=== PATIENT | female | born 1980 | race Two or more races ===

== ENCOUNTER 2021-06-30 22:16 | Emergency (ER) | payer MEDICAID, OTHER ==
[~2021-06-30] VITALS: Ht 152.4 cm; Wt 81.6 kg
[2021-06-30 23:30] VITALS: BP 126/81
== END 2021-07-01 00:40 | disposition home or self-care (01) ==
LOC: ER 22:16
DX: S01.01XA Laceration without foreign body of scalp, initial encounter (principal); R51.9 Headache, unspecified; W22.8XXA Striking against or struck by other objects, initial encounter; Y93.89 Activity, other specified; Y92.89 Other specified places as the place of occurrence of the external cause; Y99.8 Other external cause status
CPT/HCPCS: 12002; 70450

== ENCOUNTER 2022-02-07 01:38 | Emergency (ER) | payer MEDICAID ==
[~2022-02-07] VITALS: Ht 154.9 cm; Wt 81.6 kg
[2022-02-07 02:10] LABS: Urine WBC None Seen /hpf (0 - 5)
[2022-02-07 02:27] LABS: Urine Bacteria NONE SEEN /hpf (None Seen); Urine Blood Negative /uL (Negative); Urine Specific Gravity 1.009 (1.001-1.035)
[2022-02-07 03:40] LABS: Basophils # (auto) 0 10 ^3/uL (0-0.2); Basophils % (auto) 0.4 % (0.0-2.0); Eosinophils # (auto) 0.1 10 ^3/uL (0-0.8); Eosinophils % (auto) 1.3 % (0.0-7.0); Hematocrit 39.5 % (36.0-46.0); Hemoglobin 13.5 g/dL (12.2-16.2); Lymphocytes # (auto) 2.5 10 ^3/uL (0.4-5.4); Lymphocytes % (auto) 31.5 % (10.0-50.0); Mean Corpuscular Hemoglobin 29.8 pg (28.0-32.0); Mean Corpuscular Volume 87.5 fL (80.0-100.0); Monocytes # (auto) 0.4 10 ^3/uL (0-1.3); Monocytes % (auto) 4.8 % (0.0-12.0); Neutrophils # (auto) 4.9 10 ^3/uL (1.6-8.6); Nucleated Red Blood Cells % 0.1 %; Red Blood Cells 4.52 10^6/uL (4.0-5.20); Red Cell Distribution Width 13.2 % (11.8-14.3); White Blood Cell 7.9 10^3/uL (4.4-10.8)
[2022-02-07 03:47] LABS: Albumin 3.3 g/dL (3.4-5.0); BUN/Creatinine Ratio 10.1; Calcium 8.3 mg/dL (8.5-10.1); Magnesium 2.4 mg/dL (1.6-2.6); Potassium 3.8 mmol/L (3.5-5.1)
[2022-02-07 03:50] LABS: Bilirubin, Total 0.5 mg/dL (0.2-1.0); Total Protein 6.3 g/dL (6.4-8.2)
[2022-02-07] MEDS ORDERED: ASPirin 81 mg TAB PO ONE (07:15)
[2022-02-07 08:44] VITALS: BP 115/75
== END 2022-02-07 08:51 | disposition home or self-care (01) ==
LOC: ER 01:38
DX: E86.0 Dehydration (principal); F41.9 Anxiety disorder, unspecified; M79.10 Myalgia, unspecified site
CPT/HCPCS: 36415; 71045; 80053; 81001; 81025; 83735; 83880; 84484; 85025; 93005